=== PATIENT | male | born 1940 | race Caucasian/White ===

== ENCOUNTER 2017-03-26 10:49 | Outpatient (CLI) | payer OTHER | END 2017-03-26 12:55 | disposition home or self-care (01) | LOC: SRD 10:49 | PROVIDERS: ATTEND Internal Medicine | DX: M47.892 Other spondylosis, cervical region (principal); M16.0 Bilateral primary osteoarthritis of hip; M17.12 Unilateral primary osteoarthritis, left knee; M19.072 Primary osteoarthritis, left ankle and foot; Q66.0 Congenital talipes equinovarus; R26.2 Difficulty in walking, not elsewhere classified; M62.562 Muscle wasting and atrophy, not elsewhere classified, left lower leg; M40.202 Unspecified kyphosis, cervical region | CPT/HCPCS: 72050-TC; 73502; 73564 ==